=== PATIENT | female | born 1970 | race Hispanic/Latino ===

== ENCOUNTER 2020-05-10 00:43 | Emergency (ER) | payer OTHER ==
[~2020-05-10] VITALS: Ht 165.1 cm; Wt 122.5 kg
--- NOTE | 2020-05-10 02:17 | Diagnostic Imaging Report ---
FOOT 3 VIEW LT - HOPD - 3 views HISTORY: Pain COMPARISON: None available. FINDINGS: Bones: No acute displaced fracture. Osseous alignment is within normal limits. Joints: The joint spaces are well-maintained. Soft tissues: The soft tissues appear unremarkable. IMPRESSION: No acute radiographic abnormality. Signed by: Dr. Nic Matute MD on 05/10/2020 2:13 AM
[2020-05-10] MEDS ORDERED: IBUPROFEN 600 MG TAB PO STA (03:22)
--- NOTE | 2020-05-10 03:28 | NUR ---
APPLIED AIRSELECT SHORT BOOT. PT ABLE TO AMB WITH BOOT ON
[2020-05-10 03:55] VITALS: BP 146/88
--- NOTE | 2020-05-10 04:02 | Emergency Department Note ---
History of Present Illnes History of Present Illness Chief Complaint: Extremity Trauma/Pain History of Present Illness This is a 49 year old female who presents with left foot pain, s/p left foot pain. 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 Did not hit head. No LOC. No numbness, tingling, or weakness. Pain left foot when bears weight. Historian: Patient Arrival Mode: Car Additional Treatment CORPORATE OPERATIONS COMPLIANCE MANAGER: IBUPROFEN AT 1830 Onset (how long ago): hour(s) (This evening) Radiation: Reports non-radiation Severity: mild (at rest), severe (with weight bearing) Duration (how long): hour(s) Timing of current episode: constant Progression: unchanged Chronicity: new Context: Reports trauma/injury; Denies recent illness (No known COVID contacts) Relieving factors: immobilization Exacerbating factors: other (weight bearing) Associated symptoms: Reports denies other symptoms; Denies fever/chills, Denies headaches, Denies loss of appetite, Denies nausea/vomiting, Denies shortness of breath Treatments prior to arrival: NSAID Past Medical/Family History Physician Review I have reviewed the patient's past medical and family history. Any updates have been documented here. Past Medical History Recent Fever: No Clinical Suspicion of Infectio: No New/Unexplained Change in Ment: No Past Medical History: None Past Surgical History: Hysterectomy, T&A Social History Smoking Cessation: Never Smoker Alcohol Use: None Any Illegal Drug Use: No Physically hurt or threatened: No Other Any Pre-Existing Lines (PICC,: No Review of Systems Review of Systems Constitutional: Reports no symptoms Cardiovascular: Reports no symptoms; Denies as per HPI, Denies chest pain, Denies edema, Denies palpitations, Denies syncope, Denies other Respiratory: Reports no symptoms Gastrointestinal: Reports no symptoms Genitourinary: Reports no symptoms Musculoskeletal: Reports as per HPI Integumentary: Denies rash Neurological: Reports no symptoms; Denies paresthesia, Denies pre-existing deficit Hematological/Lymphatic: Reports no symptoms Physical Exam Related Data Triage Vital Signs Vital Signs Date Time Temp Pulse Resp B/P (MAP) Pulse Ox O2 Delivery O2 Flow Rate FiO2 05/10/20 01:12 97.9 71 18 150/91 99 Room Air Physical Exam CONSTITUTIONAL Constitutional: Present well-developed, Present well-nourished HENT HENT: Present normocephalic, Present atraumatic, Present oropharynx clear/moist, Present nose normal EYES NECK PULMONARY Pulmonary: Present effort normal, Present breath sounds normal CARDIOVASCULAR Cardiovascular: Present regular rhythm, Present heart sounds normal, Present capillary refill normal, Present normal rate GASTROINTESTINAL Abdominal: Present soft, Present nontender, Present bowel sounds normal GENITOURINARY SKIN Skin: Present other (abrasion of anterior aspect of bilateral knees); Absent rash MUSCULOSKELETAL Musculoskeletal: Present other (right great toe: subungual hematoma, left opener tender over lateral aspect. Left & Right ankle non-tender with FROM without diff iculty. No LE swelling); Absent edema NEUROLOGICAL Neurological: Present alert, Present oriented x 3, Present no gross motor or sensory deficits, Present abnormal gait (walks with limp favoring left LE); Absent sensory deficit PSYCHOLOGICAL Psychological: Present mood/affect normal, Present behavior normal Results Laboratory Laboratory comments FOOT 3 VIEW LT - HOPD - 3 views HISTORY: Pain COMPARISON: None available. FINDINGS: Bones: No acute displaced fracture. Osseous alignment is within normal limits. Joints: The joint spaces are well-maintained. Soft tissues: The soft tissues appear unremarkable. IMPRESSION: No acute radiographic abnormality. Signed by: Dr. Nic Matute MD on 05/10/2020 2:13 AM Dictated By: NIC MATUTE MD Procedures Nail Trephination Time out performed: Yes Location (toe): right, first digit Sterile prep: chlorhexidine Method of drainage: needle Procedure successful: Yes Patient tolerated procedure: well Orthopedic Splinting/Casting Injury: Injury #1 Side: left Lower extremity immobilizer: boot orthosis (short boot) Assessment & Plan Medical Decision Making MDM Differential includes fracture, sprain, sprain, contusion. Reassessment Reassessment time: 03:48 Reassessment pain better Assessment & Plan Final Impression: (1) Abrasion of knee, bilateral (2) Subungual hematoma of great toe of right foot (3) Sprain of left foot Depart Disposition: HOME, SELF-CARE Last Vital Signs Date Time Temp Pulse Resp B/P (MAP) Pulse Ox O2 Delivery O2 Flow Rate FiO2 05/10/20 01:12 97.9 71 18 150/91 99 Room Air ADY VAZ MD May 10, 2020 02:48
[2020-05-10] MEDS ORDERED: IBUPROFEN 600 MG TAB ONE (04:09)
--- OUTSIDE RECORDS SUMMARY | 2020-05-10 05:11 | XMS REPORT | Continuity of Care Document ---
Author Author [facility] t Organization [facility] Address [address] [place] [address] Dr. Nagy [address] [place] [phone] Phone Unavailable Care Team Providers Care Professor Of Psychology Name Role Phone Unavailable Unavailable Problems This patient has no known problems. Allergies, Adverse Reactions, Alerts This patient has no known allergies or adverse reactions. Medications This patient has no known medications. Procedures This patient has no known procedures. Results Test Description Test Time Test Comments Results Result Comments Source FOOT 3 VIEW LT - HOPD 2020-05-10 02:12:00 [facility] [address] [place] [address] Patient Name: DENNIS AYALA MR #: [id number] : 1970 Age/Sex: 49/F Req #: [id number] Adm Physician: Ordered by: ADY VAZ MD Report #: [id number] Location: [facility] Room/Bed: Procedure: [id number] HOPD/FOOT 3 VIEW LT - H[facility]D Exam Date: 05/10/20 Exam Time: 0159 REPORT STATUS: Signed FOOT 3 VIEW LT - HOPD - 3 views HISTORY: Pain COMPARISON: None available. FINDINGS: Bones: No acute displaced fracture. Osseous alignment is within normal limits. Joints: The joint spaces are well-maintained. Soft tissues: The soft tissues appear unremarkable. IMPRESSION: No acute radiographic abnormality. Signed by: Dr. Nic Downing MD on 05/10/2020 2:13 AM Dictated By: NIC DOWNING MD 2 Transcribed By: AMBROCIO on 05/10/20212 COPY TO: ADY VAZ MD
== END 2020-05-10 03:55 | disposition home or self-care (01) ==
LOC: FSED 02:49
DX: S93.602A Unspecified sprain of left foot, initial encounter (principal); S90.211A Contusion of right great toe with damage to nail, initial encounter; S80.212A Abrasion, left knee, initial encounter; S80.211A Abrasion, right knee, initial encounter; M79.672 Pain in left foot; X50.1XXA Overexertion from prolonged static or awkward postures, initial encounter; Y93.01 Activity, walking, marching and hiking; Y92.89 Other specified places as the place of occurrence of the external cause
CPT/HCPCS: 99283

== ENCOUNTER 2022-04-05 04:12 | Emergency (ER) | payer OTHER ==
[~2022-04-05] VITALS: Ht 165.1 cm; Wt 127.0 kg
[2022-04-05 04:28] LABS: BASOPHILS % 0.4 % (0.0-1.0); EOSINOPHILS # (AUTO) 0.3 (0.0-0.4); EOSINOPHILS % 4.2 % (0.0-6.0); HEMATOCRIT 42.4 % (34.2-44.1); HEMOGLOBIN 13.8 g/dL (12.0-16.0); LYMPHOCYTES # (AUTO) 2.9 (1.0-3.2); LYMPHOCYTES % 36.6 % (18.0-39.1); MEAN CORPUSCULAR HEMOGLOBIN 28.8 pg (28-32); MEAN CORPUSCULAR HGB CONC 32.5 g/dL (31-35); MEAN CORPUSCULAR VOLUME 88.3 fL (81-99); MONOCYTES # (AUTO) 0.5 (0.2-0.8); MONOCYTES % 6.4 % (4.4-11.3); NEUTROPHILS # (AUTO) 4.1 (2.1-6.9); NEUTROPHILS % 52.1 % (38.7-80.0); PLATELET COUNT 227 x10e3/uL (140-360); RED CELL DISTRIBUTION WIDTH 13.4 % (11.7-14.4)
[2022-04-05 04:47] LABS: ALBUMIN 3.8 g/dL (3.5-5.0); ALBUMIN/GLOBULIN RATIO 0.9 (0.8-2.0); ANION GAP 14.7 mmol/L (8-16); CALCIUM 8.8 mg/dL (8.4-10.2); CREATININE, SERUM 0.7 mg/dL (0.57-1.11); POTASSIUM 3.7 mmol/L (3.5-5.1)
[2022-04-05 04:54] LABS: CLARITY,URINE CLEAR (CLEAR); COLOR,URINE YELLOW (YELLOW); KETONES,URINE NEGATIVE (NEGATIVE); LEUKOCYTE ESTERASE ,URINE NEGATIVE (NEGATIVE); NITRITE,URINE NEGATIVE (NEGATIVE); PROTEIN,URINE DIPSTICK NEGATIVE (NEGATIVE); URINE UROBILINOGEN 0.2 mg/dL (0.2 - 1)
[2022-04-05 04:56] LABS: BACTERIA,URINE FEW /HPF; EPITHELIAL CELLS,URINE FEW /LPF; RBC,URINE 0-5 /HPF (0-5); WBC,URINE (MAN) 0-5 /HPF (0-5)
== END 2022-04-05 06:03 | disposition home or self-care (01) ==
LOC: ER 04:19
DX: R00.2 Palpitations (principal); J45.909 Unspecified asthma, uncomplicated; R94.31 Abnormal electrocardiogram [ECG] [EKG]
CPT/HCPCS: 36415; 71045; 80053; 81001; 84484; 85025; 93005; 99284

== ENCOUNTER 2024-10-10 05:58 | Emergency (ER) | payer OTHER ==
[~2024-10-10] VITALS: Ht 165.1 cm; Wt 127.5 kg
[~2024-10-10 05:58] MED LIST: AZITHROMYCIN250 MG PO; PREDNISONE20 MG PO
[2024-10-10] MEDS: KETOROLAC TROMETHAMINE 30 MG/ML VIAL IV STA (07:37)
[2024-10-10 11:52] VITALS: PULSE 60; RESP 18; TEMP 97.6; O2SAT 98
== END 2024-10-10 11:52 | disposition home or self-care (01) ==
LOC: FSED 06:04
DX: R07.89 Other chest pain (principal); J06.9 Acute upper respiratory infection, unspecified; J45.909 Unspecified asthma, uncomplicated; E66.9 Obesity, unspecified; Z11.52 Encounter for screening for COVID-19
CPT/HCPCS: 0223U; 71046; 87400; 93005; 96374; 99284; J1885